=== PATIENT | female | born 1950 | race Caucasian/White ===

== ENCOUNTER → 2017-04-26 | Day surgery (SDC) | payer MEDICARE, OTHER ==
[~2017-04-26] VITALS: Ht 162.6 cm; Wt 80.4 kg
[~2017-04-26] MED LIST: *diphenhydrAMINE HCL 50 MG/ML VIAL PERIprocedural Use ONLY ONE; *morphine SULFATE 8 MG/ML PERIprocedure ONLY ONE; CHLORHEXIDINE GLUCONATE 2 % 1 PACK (2 CLOTHS) TOPICAL PRN; DEXAMETHASONE SOD PHOS 4 MG/ML VIAL IV ONE; DO NOT ADM ANY ANTICOAGULANT DRUGS PRN; INSULIN HUMAN REGULAR 1,000 UNITS/10 ML VIAL SQ PRN; KETOROLAC TROMETHAMINE 30 MG/ML (IVP) VIAL IV PUSH ONE; LABETALOL HCL 100 MG/20 ML VIAL IV ONE; LACTATED RINGER'S 1000 ML IV PRN; LIDOCAINE HCL 1% PF 5 ML AMPULE OTHER ONE; METHYLERGONOVINE MALEATE 0.2 MG/ML VIAL ONE; METOPROLOL TARTRATE 25 MG TAB PO PRN; MIDAZOLAM HCL 2 MG/2 ML VIAL IV ONE; ONDANSETRON HCL 4 MG/2 ML VIAL IV PUSH ONE; OXYC1TAB63 PO; OXYTOCIN 10 UNIT/ML AMP ONE; POVIDONE IODINE 5% (ANTISEPSIS KIT) 4 APPLICATIONS EACH NARE PRN; PROPOFOL 200 MG/20 ML AMP IV ONE; SODIUM CHLOR 0.9% 1000 ML INJ 1,000 ML IV ONE; SODIUM CHLORID 0.9% 500 ML IV PRN; TURM500C4 PO; ePHEDrine/NS 25 MG/5 ML SYR IV ONE; oxyCODONE/ACETAMINOPHEN 5 MG/325 MG TAB PO PRN
[2017-04-26 09:02] LABS: AUTOMATED NEUTROPHIL # 2.4 TH/MM3 (1.8-7.7); BASOPHIL # 0.1 TH/MM3 (0-0.2); BASOPHIL % 1.3 % (0.0-2.0); EOSINOPHIL # 0.1 TH/MM3 (0-0.4); EOSINOPHIL % 2.7 % (0.0-4.0); HEMATOCRIT 43.8 % (35.0-46.0); HEMO FLAGS DIFF FINAL; LYMPH % 39.5 % (9.0-44.0); LYMPHOCYTE # 1.9 TH/MM3 (1.0-4.8); MEAN CELL VOLUME 90.7 FL (80.0-100.0); MEAN CORPUSCULAR HEMOGLOBIN 30.8 PG (27.0-34.0); MONO % 8.1 % (0.0-8.0); NEUT % 48.4 % (16.0-70.0); PLATELET COUNT 261 TH/MM3 (150-450); RED BLOOD COUNT 4.83 MIL/MM3 (4.00-5.30); RED CELL DISTRIBUTION WIDTH 12.9 % (11.6-17.2); WHITE BLOOD COUNT 4.9 TH/MM3 (4.0-11.0)
--- NOTE | 2017-04-26 11:26 | PD.OP ---
Operative Report Date of Surgery: Apr 26, 2017 Preoperative Diagnosis: (1) Cervical polyp (2) H/O cervical polypectomy (3) HGSIL (high grade squamous intraepithelial lesion) on Pap smear of cervix Postoperative Diagnosis: (1) H/O cervical polypectomy (2) HGSIL (high grade squamous intraepithelial lesion) on Pap smear of cervix [place] [facility] [place] [facility] Anesthesia: general lev Surgeon: Danielito Morales Qa Developer(s): no Operation and Findings: normal anatomy scan intrauterine Danielito Morales MD Apr 26, 2017 11:26
--- NOTE | 2017-04-26 11:33 | HHI.DCPOC ---
Discharge Care Plan Diagnosis: (1) H/O cervical polypectomy (2) HGSIL (high grade squamous intraepithelial lesion) on Pap smear of cervix Report Symptoms to Your Doctor -Temperature above 100.5 degrees -Redness, of incision or excessive or foul smelling drainage -Unusual pain or calf pain -Increased vaginal bleeding -Painful or difficulty urinating -Feelings of extreme sadness or anxiety after 2 weeks Goals to Promote Your Health * To prevent worsening of your condition and complications * To maintain your health at the optimal level Directions to Meet Your Goals Take your medications as prescribed Follow your dietary instruction Follow activity as directed Ensure plenty of rest for recovery Drink fluids for hydration Keep your appointments as scheduled Take your immunizations and boosters as scheduled If your symptoms worsen call your PCP, if no PCP go to Urgent Care Center or Emergency Room Smoking is Dangerous to Your Health. Avoid second hand smoke Call the 24-hour crisis hotline for domestic abuse at Danielito Morales MD Apr 26, 2017 11:33
--- NOTE | 2017-04-26 12:01 | MP ---
cc: AYANNA MORALES M.D. DATE OF SURGERY 04/26/2017 PROCEDURE 1. Dilation and curettage. 2. Hysteroscopy. 3. Cervical cone biopsy. PREOPERATIVE DIAGNOSIS The patient had a dysplastic polyp with high-grade dysplasia along with a dysplastic Pap smear, high-grade dysplasia. POSTOPERATIVE DIAGNOSIS The patient had a dysplastic polyp with high-grade dysplasia along with a dysplastic Pap smear, high-grade dysplasia. SURGEON Dr. Ayanna Morales ESTIMATED BLOOD LOSS 50 cc. COMPLICATIONS None. ANESTHESIA General by Dr. Wise. FINDINGS No significant pathology seen. Endometrial ablation of scar tissue endometrial. PROCEDURE IN DETAIL After informed consent the patient was taken to the operating room where she was placed under general anesthesia placed under general anesthesia. She was placed in the [facility]. The abdomen, perineum and vagina were prepped and draped in normal sterile fashion along with a red Aviles catheter used to drain the bladder. After adequate anesthesia was assured and a time-out was taken for the procedure and everyone agreed, a speculum was placed in the vagina. The cervix was grasped with a single-tooth tenaculum. The cervix was dilated to accommodate a 4-mm hysteroscope. We passed the hysteroscope to the fundus after dilating. The uterus was noted to be narrowed secondary to scar tissue from her previous ablation. We did see the fundus and could see toward the tubal ostia but neither tubal ostia could be seen. There was a very smooth postmenopausal endometrium on the endocervical evaluation with 30-degree scope. There was no polyp and there was no remaining stalk of the polyp. No abnormalities were seen in this area. The exterior the cervix appeared normal. At this point the instruments were removed. The patient was dilated slightly more. A sharp curette was passed in all four quadrants in the endometrium and we obtained endometrial tissue. We then proceeded perform an endocervical curettage and obtain endocervical curettings. The hysteroscope was passed one time; there was no active bleeding and no abnormalities noted after the curettage. At this point that was removed. The single-tooth tenaculum was repositioned slightly and a cone biopsy was performed by using a curved 11 blade. We then entered the cervix in a circumferential fashion marking the 12 o'clock portion with a suture. We performed our cone biopsy. ECC had already been performed prior to the cone and the cone biopsy was completed with [place] scissors. Good hemostasis was achieved with a Bovie cautery. At this point, once hemostasis was achieved, Surgicel was placed in the base for any slight oozing and the stay sutures that were placed at 3 o'clock and 9 o'clock were oversewn over the Surgicel. There was no active bleeding at the end of the procedure. The patient was taken out of her candy-cane stirrups, awakened, the LMA was removed and the patient was taken to the recovery room in stable condition. MD ADDISON Rivers/KATIE /11:27 AM /11:49 AM
[2017-04-26 12:39] VITALS: BP 127/69; PULSE 67; RESP 20; TEMP 97.6; O2SAT 97
--- NOTE | 2017-04-27 07:23 | EKG ---
Date Performed: 04/26/2017 Time Performed: 08:37:55 PTAGE: 66 years EKG: Sinus rhythm WITH SINUS ARRHYTHMIA LEFT AXIS DEVIATION NONSPECIFIC T WAVE CHANGE ABNORMAL ECG NO PREVIOUS TRACING DOCTOR: Levar Ross Interpretating Date/Time 04/27/2017 07:22:16
== END | disposition home or self-care (01) ==
LOC: HSDC 07:57
PROVIDERS: ATTEND Obstetrics & Gynecology
DX: R87.613 High grade squamous intraepithelial lesion on cytologic smear of cervix (HGSIL) (principal); N84.1 Polyp of cervix uteri; N93.9 Abnormal uterine and vaginal bleeding, unspecified; R94.31 Abnormal electrocardiogram [ECG] [EKG]
CPT/HCPCS: 00952; 57520; 58558; 85025; 88305; 88307; 93005; J1100; J1200; J1885; J2250; J2270; J2405; J3010; J7030; J7120; J2210; J2590